=== PATIENT | male | born 1975 | race Caucasian/White ===

== ENCOUNTER 2025-01-14 08:51 | Day surgery (SDC) | payer SELFPAY ==
[2025-01-14] VITALS (9 sets, daily range): BP systolic 86–127; BP diastolic 61–80; PULSE 61–71; RESP 14–18; TEMP 36.1–36.8; O2SAT 97–100; BMI 22.4
--- NOTE | 2025-01-14 09:18 | H&P.OPEN ---
HPI - General HPI Narrative LAURA PINEDA, is a 49 M who presents for screening colonoscopy. Patient has never had a colonoscopy in the past. He denies abdominal pain or blood in the stool. He has no family history of colon cancer. PFSH Medical History Anxiety Arthritis Restless legs Non-smoker Home Medications ?Medication ?Instructions ?Recorded ?Last Taken ?Type ascorbic acid (vitamin C) 500 mg 500 mg PO QDAY 12/03/24 01/13/25 History tablet fluvoxamine 150 mg 150 mg PO QHS 12/03/24 01/13/25 History capsule,extended release 24 hr magnesium oxide 400 mg PO QDAY 12/03/24 01/13/25 History turmeric root extract 500 mg 500 mg PO QDAY 12/03/24 01/13/25 History capsule vitamin B complex 1 tab PO QDAY 12/03/24 01/13/25 History Allergy/AdvReac Type Severity Reaction Status Date / Time No Known Allergies Allergy Verified 01/14/25 09:13 Surgical History (Updated 01/09/25 @ 12:13 by Zara Harrison) Hx of arthroscopy Hx of arthroscopy Hx of shoulder surgery Social History (Updated 12/03/24 @ 08:56 by Lidia Astorga) household members: spouse current occupational status: employed Smoking Status: Never smoker alcohol intake: never substance use type: does not use Past Medical/Surgical History Planned Operation Planned Operative Procedure(s): CSCOPE OA Previous Hospitalizations/Surgeries HX Hospitalizations: No Any Problems With Anesthesia: No You/Your Family Experience Fever (Hyperthermia) With Anes: No Cholinesterase deficiency: No Cardiovascular Hx Hypertension: No Respiratory Hx Sleep Apnea: No Hx Respiratory Tract Infection/Cold (presently): No Do You Snore Loudly (louder than talking or can be heard): No Do You Often Feel Tired/ Fatigued/ Sleepy Dring Daytime?: No Has Anyone Observed You Stop Breathing During Sleep?: No Result (for STOP score): Negative Smoking Status: Never smoker Neurological Does patient have nerve stimulator: No Reproduction : No Miscellaneous Recent Exposure to Contagious Disease: No Allergies No Known Allergies Allergy (Verified 01/14/25 09:13) Discharge Is Pt Admitted From a Skilled Nursing, or a Long-Term: No After D/C, Where Do you Plan to Go: Return Home Vital Signs Vital Signs Vital Signs: 01/14/25 09:14 01/14/25 09:14 Temperature 97.5 F L Temperature Source Temporal Pulse Rate 69 Respiratory Rate 16 Respiratory Pattern Normal Blood Pressure 127/80 H Blood Pressure Mean 95 Blood Pressure Source Monitor Blood Pressure Position Semi-Fowlers Blood Pressure Location Left Arm Pulse Ox 100 Oxygen Delivery Method Room Air Weight Weight: 160 lb 14.999 oz Body Mass Index (BMI) 22.4 Physical Exam Const alert and oriented x3 HEENT normocephalic Eyes PERRL Resp normal respiratory effort and normal air movement Cardio regular rate and regular rhythm GI soft to palpation, non-tender and non-distended Extremity normal to inspection Assessment & Plan Assessment/Plan (1) Encounter for screening for malignant neoplasm of colon: PLAN: I explained endoscopy in detail to the patient. I explained the risks including but not limited to stroke or heart attack with anesthesia, perforation of the GI tract, bleeding, infection. I explained that any of these could necessitate further emergency surgery. The patient understands and all questions were answered sufficiently. The patient wishes to proceed with procedure. Julio Cesar Chan MD Pager: [facility] [address] [place] [address], [address] [place] [address] Office: Surgery Risks - Colonoscopy Risks Include but are not Limited To: Risks include but are not limited to: Bleeding, perforation requiring further surgery, inability to complete colonoscopy requiring barium enema.
--- NOTE | 2025-01-14 09:24 | PCM.PRE.AN2 ---
ASA Classification* ASA Classification ASA Classification: 1 Assessment & Plan Anesthesia* Anesthesia Assessment Anesthesia Assessment: Discussed sedation and/or anesthesia options, risks, benefits, and alternatives with patient/parents/legal guardian/POA. Questions invited. The patient/parents/legal guardian/POA seems to understand and agrees to proceed with anesthesia plan. Reviewed the physical assessment, medical history, allergy history and patient home medications list prior to surgery/procedure/anesthetic and documented any changes. Performed airway and anesthesia risk assessments. Anesthesia Type Anesthesia Type: MAC History Source History Obtained from:: Patient and Chart Anesthesia Focused Assessment* Temperature: 97.5 F Pulse Rate: 69 Blood Pressure: 127/80 Respiratory Rate: 16 Pulse Ox: 100 Oxygen Delivery Method: Room Air Airway Assessment Mouth opens: >3 cm Mallampati Score: II Teeth Condition: Caps/Crowns (Patient has a crown. 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 When Was Last Pacemaker Check QUESTION #4 FULL TEXT: You/Your Family Experience fever (hyperthermia) with Anesthesia Last Oral Intake Last Oral intake: Last Oral Intake NPO since 05:00 01/14/25 09:14 Meds taken in AM with sips of No 01/14/25 09:14 water? Meds patient instructed to take am of surgery Any additional information?: Yes NPO since: 04:00 (Patient finished prep at 4 AM) PONV PONV - software solutions architect: PONV - software solutions architect Female No 01/09/25 12:07 HX of Motion Sickness Yes 01/09/25 12:07 HX of N/V After Surgery No 01/09/25 12:07 Non-Smoker Yes 01/09/25 12:07 Duration of Surgery greater No 01/09/25 12:07 than 60 minutes Number of Risk Factors 2 01/09/25 12:07 PONV Score Moderate Risk 01/09/25 12:07 Height & Weight Height & Weight: Anesthesia: Height & Weight Height 5 ft 11 in 01/14/25 09:14 Weight: 73 kg 01/14/25 09:14 Body Mass Index (BMI) 22.4 01/14/25 09:14 Respiratory Assessment Respiratory Assessment - software solutions architect: Respiratory Tract Infection Hx - software solutions architect Hx Respiratory Tract Infection No 01/14/25 09:18 STOP Sleep Apnea STOP Sleep Apnea - software solutions architect: STOP Sleep Apnea - software solutions architect Hx Hypertension No 01/14/25 09:18 Hx Sleep Apnea No 01/14/25 09:18 CPAP BIPAP Do you snore loudly (louder No 01/14/25 09:18 than talking or can be heard Do you often feel tired/ No 01/14/25 09:18 fatigued/ sleepy during daytime? Has anyone observed you stop No 01/14/25 09:18 breathing during sleep? STOP Results Negative 01/14/25 09:18 QUESTION #5 FULL TEXT : Do you snore loudly (louder than talking or can be heard through closed doors)? 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 Specify any problems Hx of Preganancy in last 3 N/A 01/09/25 12:07 Months Nurse Filling Out Transfusion DSCHRIBER 01/09/25 12:07 & Questions: Date: 01/09/25 01/09/25 12:07 Time: 12:08 01/09/25 12:07 Patient unable to answer at this time (ie. confused, unrespo /Reproduction History /Reproductive History - software solutions architect: /Reproductive Hx- software solutions architect Hx Now No 01/14/25 09:18 Gestational Age (in weeks): EDC: Hx Hx Para Hx Section SAB No 01/09/25 12:07 PFSH Medical History Anxiety Arthritis Restless legs Non-smoker Home Medications ?Medication ?Instructions ?Recorded ?Last Taken ?Type ascorbic acid (vitamin C) 500 mg 500 mg PO QDAY 12/03/24 01/13/25 History tablet fluvoxamine 150 mg 150 mg PO QHS 12/03/24 01/13/25 History capsule,extended release 24 hr magnesium oxide 400 mg PO QDAY 12/03/24 01/13/25 History turmeric root extract 500 mg 500 mg PO QDAY 12/03/24 01/13/25 History capsule vitamin B complex 1 tab PO QDAY 12/03/24 01/13/25 History Allergy/AdvReac Type Severity Reaction Status Date / Time No Known Allergies Allergy Verified 01/14/25 09:13 Surgical History Hx of arthroscopy Hx of arthroscopy Hx of shoulder surgery Social History household members: spouse current occupational status: employed Smoking Status: Never smoker alcohol intake: never substance use type: does not use Review of Systems (Anesthesia) ROS Narrative System reviewed and no additional complaints, except as documented.
--- NOTE | 2025-01-14 09:49 | OP.COLON_ITS ---
Patient Name: Ernie Chase Procedure Date: 01/14/2025 9:28 AM Date of : 1975 Age: 49 Procedure: Colonoscopy Indications: Screening for colorectal malignant neoplasm Providers: Julio Cesar Chan MD Medicines: Propofol per Anesthesia Patient Profile: This is a 49 year old male. Refer to note in patient chart for documentation of history and physical. Last Colonoscopy: none. The patient's first colonoscopy is today. Complications: No immediate complications. Procedure: Pre-Anesthesia Assessment: - Prior to the procedure, a History and Physical was performed, and patient medications and allergies were reviewed. The patient's tolerance of previous anesthesia was also reviewed. The risks and benefits of the procedure and the sedation options and risks were discussed with the patient. All questions were answered, and informed consent was obtained. Prior Anticoagulants: The patient has taken no anticoagulant or antiplatelet agents. After reviewing the risks and benefits, the patient was deemed in satisfactory condition to undergo the procedure. After I obtained informed consent, the scope was passed under direct vision. Throughout the procedure, the patient's blood pressure, pulse, and oxygen saturations were monitored continuously. The colonoscope was introduced through the anus and advanced to the cecum, identified by appendiceal orifice and ileocecal valve. The colonoscopy was performed without difficulty. The patient tolerated the procedure well. The quality of the bowel preparation was good. The ileocecal valve, appendiceal orifice, and rectum were photographed. Scope In: 9:37:03 AM Scope Withdrawal Time 0 hours 7 minutes 23 seconds Scope Out: 9:46:58 AM Total Procedure Duration Time 0 hours 9 minutes 55 seconds Findings: The entire examined colon appeared normal on direct and retroflexion views. Impression: - The entire examined colon is normal on direct and retroflexion views. - No specimens collected. Recommendation: - Discharge patient to home. - Resume previous diet. - Continue present medications. - Repeat colonoscopy in 10 years for screening purposes. Procedure Code(s): --- Professional --- 47256, Colonoscopy, flexible; diagnostic, including collection of specimen(s) by brushing or washing, when performed (separate procedure) Diagnosis Code(s): --- Professional --- Z12.11, Encounter for screening for malignant neoplasm of colon CPT copyright 2021 [employer]. All rights reserved. The codes documented in this report are preliminary and upon scrub nurse review may be revised to meet current compliance requirements. Julio Cesar Chan MD 01/14/2025 9:48:50 AM This report has been signed electronically. Number of Addenda: 0 Note Initiated On: 01/14/2025 9:28 AM
--- NOTE | 2025-01-14 09:49 | OP.CCLET_ITS ---
01/14/2025 Lucille Salcedo Md Re : Colonoscopy procedure for Ernie Chase Dear Dr. Salcedo This procedure was performed on Tuesday, January 14, 2025. My impressions and recommendations are as follows: Impressions : - The entire examined colon is normal on direct and retroflexion views. - No specimens collected. Recommendations : - Discharge patient to home. - Resume previous diet. - Continue present medications. - Repeat colonoscopy in 10 years for screening purposes. My findings are described in the full procedure note, which is enclosed. If I can be of further assistance, please feel free to contact me at Doctor phone number(s): , Work: . Sincerely, Julio Cesar Chan MD 01/14/2025 9:48:50 AM This report has been signed electronically.
--- NOTE | 2025-01-14 09:54 | PCM.POST.ANE ---
Anesthesia: Postop Eval I Current Vital Signs Temperature: 97 F Pulse Rate: 71 Blood Pressure: 86/61 Respiratory Rate: 16 Pulse Ox: 97 Oxygen Delivery Method: Room Air Assessment Airway patent: Yes Spontaneous unlabored respirations: Yes Mental status: Asleep nausea: No Vomiting: No Anesthesia Complication: No Fluid Hydration Crystalloid volume administer (ml): 40 Total IV fluid infused: 40 Progress Note Anesthesia document: Postop Eval 1 completed: Yes
--- NOTE | 2025-01-14 18:34 | PCM.POSTANE2 ---
Anesthesia Postop Eval I Sum Postop Eval Completion status Anesthesia document: Postop Eval 1 completed: Yes Anesthesia Postop Eval I Summary Anesthesia Postop Eval I Summary: Anesthesia Postop Eval I: Assessment Summary Airway patent Yes 01/14/25 09:58 [email or web address] Spontaneous unlabored Yes 01/14/25 09:58 [email or web address] respirations Mental status Asleep 01/14/25 09:58 [email or web address] nausea No 01/14/25 09:58 [email or web address] Vomiting No 01/14/25 09:58 [email or web address] Anesthesia Postop Eval I: Fluid Summary Crystalloid volume administer 40 01/14/25 09:58 [email or web address] (ml) Colloids volume administered ( ml) Blood Product volume administered (ml) Total IV fluid infused 40 01/14/25 09:58 [email or web address] Anesthesia Postop Eval I: Summary Notes Anesthesia Complication No 01/14/25 09:58 [email or web address] Anesthesia Complication Comment: Post-operative progress note Anesthesia: Postop Eval II Evaluation Mental status: Awake and Calm Pain Level: 0 nausea: No Vomiting: No Complications Anesthesia Complication: No
== END 2025-01-14 10:25 | disposition home or self-care (01) ==
LOC: EN 08:54 → AC 08:55
PROVIDERS: PCP Family Medicine; Referring Provider Family Medicine; Visit Provider Surgery
PROC: 0DJD8ZZ Inspection of Lower Intestinal Tract, Via Natural or Artificial Opening Endoscopic (ICD-10-PCS; CPT 45378; principal; 2025-01-14 09:40)
DX: Z12.11 Encounter for screening for malignant neoplasm of colon (principal)
CPT/HCPCS: 45378; A4216; J2405